=== PATIENT | male | born 1960 | race Caucasian/White ===

== ENCOUNTER 2021-04-18 07:21 | Emergency (ER) | payer OTHER ==
[2021-04-18 09:07] LABS: BASOPHIL 0.3 % (0-2); EOSINOPHIL 0 % (0-5); HCT 45.5 % (42.0-52.0); HGB 16.1 g/dl (13.2-18.0); LYMPHOCYTE 15.8 % (15-48); MCH 32.9 pg (25.0-31.0); MCHC 35.4 g/dL (32.0-36.0); MONOCYTE 5.5 % (0-12); MPV 9.2 fL (6.0-9.5); NEUTROPHIL 78.1 % (41-80); NRBC 0; PLT 193 K/uL (150-400); RBC 4.89 M/uL (4.70-6.00); RDW 12.6 % (11.5-14.0); WBC 7.5 K/uL (4.0-10.5)
[2021-04-18 09:35] LABS: ALBUMIN 3.8 g/dL (3.4-5.0); BILIRUBIN - TOTAL 0.5 mg/dL (0.2-1.0); BUN/CREAT RATIO (CALC) 15.8 RATIO; CREATININE 0.95 mg/dL (0.67-1.17); GLOBULIN (CALCULATION) 3.3 g/dL; TOTAL PROTEIN 7.1 g/dL (6.4-8.2)
[2021-04-18] MEDS ORDERED: ASPIRIN EC81 MG PO (12:53)
[2021-04-18] MEDS ORDERED: PRILOSEC20 MG PO (12:53)
[2021-04-19 13:10] LABS: LYME IGG/IGM AB <0.91 ISR (0.00-0.90)
== END 2021-04-18 13:32 | disposition home or self-care (01) ==
LOC: FER 07:21
PROVIDERS: Emergency Medicine
DX: R07.89 Other chest pain (principal); E11.9 Type 2 diabetes mellitus without complications; F17.200 Nicotine dependence, unspecified, uncomplicated; Z20.822 Contact with and (suspected) exposure to COVID-19
CPT/HCPCS: 36415; 70450; 71045; 80053; 83880; 84443; 84484; 85025; 85379; 86618; 93005; J1885; J2270; U0002